=== PATIENT | female | born 1995 | race Caucasian/White ===

== ENCOUNTER 2017-12-02 03:30 | Emergency (ER) | payer OTHER ==
--- NOTE | 2017-12-02 03:36 | ER Report ---
History and Physical Time Seen By MD: 03:36 HPI/ROS CHIEF COMPLAINT: Alcohol poisoning, unresponsive HISTORY OF PRESENT ILLNESS: 22-year-old female brought in by EMS, found unresponsive. Patient appears to be grossly alcohol intoxicated. She is vomiting. Responds to painful stimulus. REVIEW OF SYSTEMS: Respiratory: No cough, no dyspnea. Cardiovascular: No chest pain, no palpitations. Gastrointestinal: No vomiting, no abdominal pain. Musculoskeletal: No back pain. Allergies: Coded Allergies: No Known Drug Allergies (Verified , 12/02/17) Home Meds Reported Medications Prednisone 10 Mg Tab (PREDNISONE 10 MG TAB) 10 Mg Tab.ds.pk, 10 MG PO, TAB 09/05/16 Norgestimate-Ethinyl Estradiol (SPRINTEC) 1 Each Tablet, 1 EACH PO DAILY 03/20/16 Reviewed Nurses Notes: Yes Old Medical Records Reviewed: Yes Hx Smoking: No Smoking Status: Never Smoker Exposure to Second Hand Smoke?: No Constitutional Vital Sign - Last 24 Hours 12/02/17 12/02/17 12/02/17 12/02/17 03:30 03:31 03:35 03:41 Temp 97.0 Pulse ??? 98 Resp 18 B/P (MAP) 86/65 86/65 (72) 88/62 (71) Pulse Ox 97 O2 Delivery Room Air 12/02/17 12/02/17 12/02/17 12/02/17 03:45 03:57 04:00 04:15 Pulse 76 89 88 B/P (MAP) 84/73 (77) 88/68 (75) Pulse Ox 93 96 97 12/02/17 12/02/17 12/02/17 12/02/17 04:30 04:45 05:00 05:02 Pulse 94 88 85 B/P (MAP) 84/41 (55) 76/57 (63) 83/66 (72) Pulse Ox 96 97 95 12/02/17 12/02/17 12/02/17 12/02/17 05:07 05:16 07:22 07:27 Pulse 91 80 B/P (MAP) 98/50 (66) 94/45 (61) Pulse Ox 96 95 12/02/17 12/02/17 12/02/17 07:42 07:57 08:02 Pulse 88 ??? 114 Pulse Ox 94 95 Physical Exam Vital signs stable, hypotensive, pulse ox normal, afebrile General Appearance: The patient is alert, has no immediate need for airway protection and no current signs of toxicity. The patient of the head and neck reveals no tenderness or trauma HEENT: Pupils equal and round no injection. TMs normal, oropharynx without redness or exudate mucous membranes are moist., Odor of EtOH and emesis on breath. Respiratory: Chest is non tender, lungs are clear to auscultation. Cardiac: regular rate and rhythm Gastrointestinal: Abdomen is soft and non tender, no masses, bowel sounds normal. Musculoskeletal: Neck: Neck is supple and non tender. Extremities have full range of motion and are non tender. Skin: No rashes or lesions. DIFFERENTIAL DIAGNOSIS: After history and physical exam differential diagnosis was considered for altered mental status including but not limited to hypoglycemia, infectious process, electrolyte abnormality, head injury and intoxicants. Medical Decision Making Data Points Laboratory Hematology Test 12/02/17 03:55 Serum Alcohol 233 mg/dl Chemistry Test 12/02/17 03:55 Serum Alcohol 233 mg/dl Toxicology Test 12/02/17 03:55 Serum Alcohol 233 mg/dl ED Course/Re-evaluation Clinical Indication for ER IV: Hydration, IV Access ED Course Patient was admitted to an examination room. H&P was done. The differential diagnoses was considered. Patient was treated with IV fluid hydration, Zofran 8 mg and a blood alcohol level was drawn. Urns at 233. Patient stops vomiting and dry heaving. She is observed for several hours. She ambulates to the bathroom, but is unsteady in her gait. She has no one responsible and sober to come pick her up and take her home. We'll continue to observe her until she is clinically sober with a steady gait to be released on her own recognizance. Decision to Disposition Date: Dec 02, 2017 Decision to Disposition Time: 04:03 Depart Departure Latest Vital Signs Vital Signs Date Time Temp Pulse Resp B/P (MAP) Pulse Ox O2 Delivery O2 Flow Rate FiO2 12/02/17 08:02 114 95 12/02/17 07:22 94/45 (61) 12/02/17 03:31 97.0 18 Room Air Impression: Primary Impression: Alcohol poisoning Condition: Improved Disposition: HOME OR SELF-CARE Referrals: TERESA XAVIER (PCP) Patient Instructions: Abuse of Alcohol (ED) Additional Instructions: Stop drinking alcohol to excess Problem Qualifiers Primary Impression: Alcohol poisoning Encounter type: initial encounter Injury intent: accidental or unintentional Qualified Codes: T51.91XA - Toxic effect of unspecified alcohol, accidental (unintentional), initial encounter SADAF AVILES DO Dec 02, 2017 03:36
[2017-12-02] MEDS ORDERED: ONDANSETRON 4 MG/2 ML VIAL IVP ONE (03:45)
[2017-12-02] MEDS ORDERED: NS(*) 0.9% 1000 ML BAG 1,000 ML IV ONE (03:45)
[2017-12-02 07:22] VITALS: BP 94/45
== END 2017-12-02 08:15 | disposition home or self-care (01) ==
LOC: ER 03:43
DX: T51.91XA Toxic effect of unspecified alcohol, accidental (unintentional), initial encounter (principal)
CPT/HCPCS: 80320; 96361; 96374; 99283; J2405; J7030

== ENCOUNTER → 2017-12-02 | Outpatient (CLI) | payer OTHER ==
[~2017-12-02] MED LIST: LEVO500T83 PO; METR-160 PO; NORG1TAB74 PO; ONDA4TAB PO; PANT40TA65 PO; PRED-420 PO
== END ==
LOC: AMB 03:17
PROVIDERS: ATTEND Nurse Practitioner
DX: R40.0 Somnolence (principal); T51.91XA Toxic effect of unspecified alcohol, accidental (unintentional), initial encounter; Y92.414 Local residential or business street as the place of occurrence of the external cause
CPT/HCPCS: A0425; A0429